=== PATIENT | female | born 1980 | race Caucasian/White ===

== ENCOUNTER → 2017-10-13 | Day surgery (SDC) | payer BC ==
[2017-09-12 13:29] VITALS: Ht 175.3 cm; Wt 67.3 kg
[2017-09-21 10:08] LABS: HEMOGLOBIN 13.2 g/dL (12.0-16.0); MEAN CELL VOLUME 87.1 fL (80-100); MEAN CORPUSCULAR HEMOGLOBIN 29.5 pg (25-34); MEAN CORPUSCULAR HGB CONC 33.8 g/dl (32-36); MEAN PLATELET VOLUME 9.6 fL (7.4-10.4); PLATELET COUNT 244 K/uL (130-400); RED CELL DISTRIBUTION WIDTH CV 12.6 % (11.5-14.5); RED CELL DISTRIBUTION WIDTH SD 40.6 fL (36.4-46.3); WHITE BLOOD COUNT 5.85 K/uL (4.8-10.8)
[~2017-10-13] VITALS: Ht 175.3 cm; Wt 67.3 kg
[~2017-10-13] MED LIST: ATROPINE SULFATE 0.1 MG/ML 5ML SYR IV PRN; BUPIVACAINE 0.5 % 5 MG/1 ML PF 10ML VIAL ONE; DEXAMETHASONE SOD INJ 4 MG/ML VIAL ONE; EpHEDrine SULFATE INJ 50 MG/ML AMP IV PRN; FENTANYL CITRATE INJ 50 MCG/1 ML 2 ML VIAL IV PRN; FENTANYL CITRATE INJ 50 MCG/1 ML 2 ML VIAL ONE; GLYCOPYRROLATE INJ 0.2 MG/ML VIAL ONE; HYDROCODONE/ACETAMIN 5/325MG TAB PO PRN; HYDROmorphone INJ 1 MG/ML SYR IV PRN; IBUPROFEN 200 MG TAB ONE; IBUPROFEN 600 MG TAB PO PRN; KETOROLAC TROMETHAMINE 30 MG/ML VIAL IV. PRN; KETOROLAC TROMETHAMINE 30 MG/ML VIAL ONE; LIDOCAINE HCL 2% 2 ML VIAL (20MG/ML) ONE; MIDAZOLAM HCL 1 MG/ML 2ML VIAL ONE; MoRPHine SULFATE 2 MG/ML CARP IV PRN; MoRPHine SULFATE 4 MG/ML 1 ML CARP\\VIAL IV PRN; NEOSTIGMINE METHYLSULFATE 5 MG/5 ML SYR ONE; ONDANSETRON INJ 2 MG/ML 2 ML VIAL IV PRN; ONDANSETRON INJ 2 MG/ML 2 ML VIAL ONE; OXYC-57 PO; OXYCODONE/ACETAMINOPHEN 5-325 TAB PO PRN; PROPOFOL IV EMULSION 10 MG/ML 20 ML VIAL IV ONE; ROCURONIUM BROMIDE 10 MG/ML 5 ML VIAL IV ONE; SODIUM CHLORIDE 0.9% 1000ML 1,000 ML IV SCH
[2017-10-13] MEDS: LACTATED RINGER'S 1000ML 1,000 ML IV SCH ×2 (07:22→09:29)
--- NOTE | 2017-10-13 07:39 | History & Physical Bridge - [place] ---
H&P Re-Evaluation Bridge Note: I have examined the patient, reviewed the History & Physical and in the interval since the performance of the History & Physical I have noted the following changes of clinical significance: No changes noted
[2017-10-13] MEDS: SILVER NITR/POTASSIUM NITRATE APPLICATOR ONE ×2 (09:02→09:14)
--- NOTE | 2017-10-13 09:13 | [facility] Post Operative Brief Note ---
Immediate Operative Summary Operative Date Oct 13, 2017. Pre-Operative Diagnosis Request For Sterilization Post-Operative Diagnosis Same Procedure(s) Performed Bilateral Laparoscopic Salpingetomies, Excision Of Mole On Umbilicus Surgeon Dr. Guidry Dump Grounds Checker Surgeon(s) None Estimated Blood Loss 10 ml Findings nl utx, tubes, ovs, nl liver edge, nl gb, nl appendix Fluids (cc crystalloids) 900cc Specimens A.) Right & Left Fallopian Tube B.) Umbilical Mole Drains none Anesthesia gett Complication(s) None Disposition Recovery Room / PACU
--- NOTE | 2017-10-13 09:15 | Discharge Instructions ---
Discharge Instructions Date of Service Oct 13, 2017. Visit Reason for Visit: Request For Sterilization Discharge Discharge Diagnosis / Problem: s/p laproscopic bilateral salpingectomies Discharge Goals Goal(s): Specific goals Activity Recommendations Activity Limitations: per Instructions/Follow-up section Anesthesia . Post Anesthesia Instructions: If you have had General Anesthesia or IV Sedation: * Do not drive today. * Resume driving when surgeon permits. * Do not make important decisions or sign legal documents today. * Call surgeon for: 1. Temperature elevations greater than 101 degrees F. 2. Uncontrollable pain. 3. Excessive bleeding. 4. Persistent nausea and vomiting. 5. Medication intolerance (nausea, vomiting or rash). * For nausea and vomiting use only clear liquids such as: tea, soda, bouillon until nausea subsides, then gradually increase diet as tolerated. * If you have any concerns or questions, call your surgeon's office. If physician is unavailable and it is an emergency, call 911 or go to the nearest emergency room. . Instructions / Follow-Up Instructions / Follow-Up ACTIVITY RECOMMENDATIONS: * Rest the first 2-3 days. You should be back to your normal activity levels by day 3. * No heavy lifting for 2 weeks. * No intercourse, tampons or douching for 1-2 weeks. * You may shower the next day. * Do not drive anytime that you are taking narcotic pain medicines. RETURN TO SCHOOL/WORK: * May return to school or work after 2-3 days. DIET: Nausea may occur in the immediate post-operative period. If so, take clear liquids such as tea, bouillon, apple juice until all nausea has subsided, then resume usual diet. MEDICATIONS: Resume previous medications unless instructed otherwise by your surgeon. Ibuprofen 200mg 2-3 tablets every 4-6 hours as needed -- OR -- Aleve 2 tablets every 8-12 hours as needed for post-operative discomfort Medications are over the counter. Tylenol may be used if above medications are contraindicated or not preferred. Medication should be taken with food or milk. Do not take on an empty stomach. SPECIAL CARE INSTRUCTIONS: * Check temperature twice daily for one week. report any elevation over 101 degrees. * You may experience some vagina spotting and/or bleeding. This is normal for 1 -2 weeks and should not be heavier than a normal period. If it is unusual in amount, call your physician. * Post-operative discomfort may consist of a sore throat, a "bloated" feeling and pain in the shoulders. these are normal symptoms, which usually only last for 2-3 days. * Remove band-aids tomorrow and shower. There is no need to replace band-aids unless there is drainage or discomfort. FOLLOW UP VISIT: Call your doctor's office for a post-operative 2 week visit if not already scheduled. Diet Recommendations Recommended Home Diet: no limitations, resume previous diet Procedures Procedures Performed: Bilateral Laparoscopic Salpingetomies, Excision Of Mole On Umbilicus Pending Studies Studies pending at discharge: no Medical Emergencies . Who to Call and When: Medical Emergencies: If at any time you feel your situation is an emergency, please call 911 immediately. . Non-Emergent Contact Non-Emergency issues call your: Registered Nurse Nursery . . "Provider Documentation" section prepared by Winter Guidry. . [place] Drug Monitoring Program Search Results: patient reviewed within database, no issues identified
--- NOTE | 2017-10-13 10:32 | Anesthesiology Progress Note ---
Anesthesia Post Op Note Date & Time Oct 13, 2017 at 10:31 Vital Signs Pain Intensity: 5 Vital Signs Past 12 Hours Date Time Temp Pulse Resp B/P (MAP) Pulse Ox O2 Delivery O2 Flow Rate FiO2 10/13/17 10:17 63 16 113/75 (88) 100 Room Air 10/13/17 10:01 55 16 105/66 100 10/13/17 10:01 36.9 56 12 105/66 100 Room Air 10/13/17 10:01 55 16 10/13/17 10:01 55 16 105/66 100 10/13/17 10:01 55 16 10/13/17 09:56 59 15 10/13/17 09:56 57 15 96/63 99 10/13/17 09:56 57 15 96/63 99 10/13/17 09:56 59 15 10/13/17 09:51 54 10 10/13/17 09:51 54 10 96/62 100 10/13/17 09:51 54 10 96/62 100 10/13/17 09:51 54 10 10/13/17 09:46 47 7 10/13/17 09:46 47 7 107/66 100 10/13/17 09:46 47 7 10/13/17 09:46 47 7 107/66 100 10/13/17 09:45 103/62 10/13/17 09:45 103/62 10/13/17 09:41 54 20 100 10/13/17 09:41 54 20 100 10/13/17 09:41 54 20 10/13/17 09:41 54 20 10/13/17 09:37 102/71 10/13/17 09:37 102/71 10/13/17 09:36 46 13 100 10/13/17 09:36 46 13 100 10/13/17 09:36 47 13 10/13/17 09:36 47 13 10/13/17 09:31 48 9 109/80 100 10/13/17 09:31 48 9 109/80 100 10/13/17 09:31 48 9 10/13/17 09:31 48 9 10/13/17 09:27 104/78 10/13/17 09:27 104/78 10/13/17 09:26 53 13 100 10/13/17 09:26 54 13 10/13/17 09:26 54 13 10/13/17 09:26 53 13 100 10/13/17 09:23 99/63 10/13/17 09:23 99/63 10/13/17 09:21 49 14 10/13/17 09:21 49 14 100 10/13/17 09:21 49 14 10/13/17 09:21 49 14 100 10/13/17 09:17 115/69 10/13/17 09:17 115/69 10/13/17 09:16 54 10/13/17 09:16 53 100 10/13/17 09:16 54 10/13/17 09:16 36.3 50 12 115/69 100 Mask 6 10/13/17 09:16 53 100 10/13/17 07:01 36.7 70 16 107/71 (83) 100 Room Air Notes Mental Status: alert / awake / arousable, participated in evaluation Pt Amnestic to Procedure: Yes Nausea / Vomiting: adequately controlled Pain: adequately controlled Airway Patency, RR, SpO2: stable & adequate BP & HR: stable & adequate Hydration State: stable & adequate Anesthetic Complications: no major complications apparent
[2017-10-13 10:49] VITALS: BP 105/58; PULSE 54; TEMP 36.9; O2SAT 100
--- NOTE | 2017-10-25 09:38 | OPERATIVE REPORT ---
DATE OF OPERATION: 10/13/2017 PREOPERATIVE DIAGNOSES: Request for sterilization, umbilical mole. POSTOPERATIVE DIAGNOSIS: Same. PROCEDURES: 1. Bilateral laparoscopic salpingectomies. 2. Excision of mole on the umbilicus. SURGEON: Dr. Guidry. ASSIST: None. ESTIMATED BLOOD LOSS: 10 mL. FLUIDS: 900 mL. URINE OUTPUT: Clear yellow urine draining from the bladder at the end of the procedure. FINDINGS: Normal uterus, tubes, and ovaries were noted bilaterally, normal liver edge, normal gallbladder, normal appendix. There was a 0.8 mm umbilical mole noted. COMPLICATIONS: None. ANESTHESIA: General per endotracheal tube. DRAINS: None. DISPOSITION: To recovery room in stable condition. OPERATION AND FINDINGS: PROCEDURE: The patient was taken to the operating room where she was identified verbally and by bracelet. She was placed in dorsal supine position where general anesthesia was induced without difficulty. She was then placed in dorsal lithotomy position in Yellofin stirrups and prepped and draped in a normal sterile fashion. Time-out was held identifying correct patient, procedure and positioning. She did not require preoperative antibiotics. Attention was turned to the vagina where a speculum was placed. The anterior lip of the cervix was grasped with single tooth tenaculum. A Villa uterine manipulator was placed into the cervix. The speculum was removed. A Diallo catheter was placed sterilely. Gloves were then changed. Attention was then turned to the abdomen where an infraumbilical incision was made with a knife. Veress needle placed through this and the abdomen was insufflated with approximately 2-1/2 liters of carbon dioxide gas and a 10 mm optical trocar was placed through this until intra-abdominal placement was confirmed. The patient was placed into Trendelenburg position and two 5 mm trocars were placed in the right and left lower quadrant under direct visualization. Then using the Harmonic scalpel the tube on the right was excised in its entirety as well as the tube on the left. The tubes were then removed through the 10 mm trocar using the 5 mm camera and accessory site. Hemostasis was noted to be excellent and that part of the procedure was terminated. Attention was then turned to the umbilicus where the mole was excised with the knife and a [id number] suture was placed. All trocars were removed from the abdomen after the gas was released. A deep stitch was placed in infraumbilical trocar site. The incisions were closed with 4-0 Vicryl in subcuticular fashion. They were infiltrated with 0.5% Marcaine and treated with Dermabond. All sponge, lap and needle counts were correct x2. The patient tolerated the procedure well and was taken to recovery room in stable condition. I attest to the content of the Intraoperative Record and any orders documented therein. Any exception s are noted below.
== END | disposition home or self-care (01) ==
LOC: X.SURG 06:39
PROVIDERS: ATTEND Obstetrics & Gynecology
DX: Z30.2 Encounter for sterilization (principal); D22.5 Melanocytic nevi of trunk; Z88.1 Allergy status to other antibiotic agents; Z88.0 Allergy status to penicillin; Z98.890 Other specified postprocedural states; Z98.818 Other dental procedure status; Z80.3 Family history of malignant neoplasm of breast